=== PATIENT | male | born 1980 | race Hispanic/Latino ===

== ENCOUNTER 2019-01-17 12:49 | Emergency (ER) | payer OTHER ==
[~2019-01-17] VITALS: Ht 182.9 cm; Wt 77.1 kg
--- NOTE | 2019-01-17 13:24 | NUR ---
PTS CUSING AND SCREAMING AT STAFF, STATES SHE'S LEAVING AND TAKING . PT THREATENING AND CONTINUES CUSSING, "FUCK YOU" TO STAFF. PT LEFT.
== END 2019-01-17 13:25 | disposition short-term general hospital (02) ==
LOC: FSED 12:49
DX: R10.9 Unspecified abdominal pain (principal)